=== PATIENT | male | born 1965 | race Two or more races ===

== ENCOUNTER 2020-08-09 11:21 | Emergency (ER) | payer MEDICARE ==
[~2020-08-09] VITALS: Ht 175.3 cm; Wt 69.7 kg
[2020-08-09 11:48] VITALS: BP 135/78
--- NOTE | 2020-08-09 12:02 | NUR ---
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
== END 2020-08-09 12:21 | disposition home or self-care (01) ==
LOC: ED 12:10
DX: L03.115 Cellulitis of right lower limb (principal); L03.116 Cellulitis of left lower limb; Z72.9 Problem related to lifestyle, unspecified; R00.0 Tachycardia, unspecified; Z59.0 Homelessness
CPT/HCPCS: 99283